=== PATIENT | female | born 1980 | race Caucasian/White ===

== ENCOUNTER 2016-10-15 12:31 | Emergency (ER) | payer OTHER ==
[~2016-10-15 12:31] MED LIST: PANTOPRAZOLE SO40 MG PO; TUMS EXTRA STR750 MG PO
--- NOTE | 2016-10-15 14:38 | ED INFLUENZA/URI COMPLAINT ---
History of Present Illness General Chief Complaint: General Adult Stated Complaint: BODY ACHES,CHILLS X 1DAY Source: patient, old records Exam Limitations: no limitations Vital Signs & Intake/Output Vital Signs & Intake/Output Vital Signs Date Time Temp Pulse Resp B/P Pulse O2 O2 Flow FiO2 Ox Delivery Rate 10/15 1237 97.3 66 20 130/81 99 Room Air Allergies Coded Allergies: NO KNOWN ALLERGIES (09/02/13) Reconcile Medications No Known Home Medications Triage Note: PT PRESENTS TO ER C/O OF BODYACHES AND CHILLS SINCE YESTERDAY. PT STATES [employer]OWORKERS HAVE BEEN SICK WITH THE FLU AND SHES WORRIED SHE MAY HAVE IT WELL Triage Nurses Notes Reviewed? yes Onset: yesterday Duration: hour(s):, constant, continues in ED, getting worse Timing: recent history Severity: moderate Prior Episodes/Possible Cause: illness exposure Modifying Factors: Improves With: medication. Associated Symptoms: fever/chills, muscle aches, nasal congestion LMP (ages 10-50): unknown : No Patient currently breastfeeds: No HPI: 1 day prior to admission patient complains of chills and aches nasal congestion. 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 She denies chest pain cough shortness of breath headache dysuria rash bleeding . Past History Travel History Traveled to [place] past 21 day No Medical History Any Pertinent Medical History? none Neurological: NONE EENT: NONE Cardiovascular: NONE Respiratory: NONE Gastrointestinal: NONE Hepatic: NONE Surgical History Surgical History: non-contributory Psychosocial History What is your primary language [place] Tobacco Use: Never used Family History Hx Contributory? No Review of Systems Review of Systems Constitutional: Reports: see HPI, chills, malaise. EENTM: Reports: no symptoms. Respiratory: Reports: no symptoms. Cardiovascular: Reports: no symptoms. GI: Reports: see HPI, nausea. Genitourinary: Reports: no symptoms. Musculoskeletal: Reports: no symptoms. Skin: Reports: no symptoms. Neurological/Psychological: Reports: no symptoms. Hematologic/Endocrine: Reports: no symptoms. Immunologic/Allergic: Reports: no symptoms. All Other Systems: Reviewed and Negative Physical Exam Physical Exam General Appearance: well developed/nourished, alert, awake, anxious, mild distress Head: atraumatic, normal appearance Eyes: Bilateral: normal appearance, PERRL, EOMI. Ears, Nose, Throat: normal ENT inspection, moist mucous membrane Neck: normal inspection, supple, full range of motion, trachea midline Respiratory: normal breath sounds, chest non-tender, no respiratory distress, quiet respiration, lungs clear Cardiovascular: regular rate/rhythm, normal peripheral pulses, norml femoral pulses equa Peripheral Pulses: 4+ carotid (R), 4+ carotid (L) Gastrointestinal: normal bowel sounds, soft, non-tender, no organomegaly Back: normal inspection, normal range of motion Extremities: normal inspection, normal capillary refill, normal range of motion, no edema Neurologic/Psych: no motor/sensory deficits, awake, alert, oriented x 3, normal gait, normal mood/affect, 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 Skin: intact, normal color, warm/dry Lymphatic: adenopathy Core Measures Severe Sepsis Present: No Septic Shock Present: No Progress Differential Diagnosis: influenza, otitis, pneumonia Plan of Care: Orders Procedure Date/time Status RAPID VIRAL INFLUENZA A 10/15 1402 Complete Current Medications Sig/Lyla Start time Last Medication Dose Stop Time Status Admin Ibuprofen 600 MG ONCE ONE 10/15 1500 UNVr (Motrin) 10/15 1501 Oseltamivir Phosphate 75 MG ONCE ONE 10/15 1500 UNVr (Tamiflu 75MG) 10/15 1501 Microbiology 10/15 1407 NASOPHARYN: Influenza Virus A & B Rapid Smear - COMP Initial ED EKG: none Departure Departure Time of Disposition: 1455 Disposition: HOME OR SELF CARE Condition: Stable Clinical Impression Primary Impression: Acute viral syndrome Referrals: BRENNAN VIVAS,CHELE Granados (PCP/Family) Departure Forms: Customer Survey General Discharge Information Prescriptions: Current Visit Scripts Oseltamivir Phosphate (Tamiflu) 1 CAP PO BID #10 CAP Ibuprofen 1 TAB PO [id number] PRN pain, chills, fever #50 TAB with food
[2016-10-15] MEDS ORDERED: IBUPROFEN600 M1 PO (14:57)
[2016-10-15] MEDS ORDERED: TAMIFLU75 M1 PO (14:57)
[2016-10-15 14:58] VITALS: BP 111/64
== END 2016-10-15 15:09 ==
LOC: ERH 12:31
DX: B34.9 Viral infection, unspecified (principal)
CPT/HCPCS: 87804; 87804-59